=== PATIENT | female | born 1980 | race Caucasian/White ===

== ENCOUNTER 2017-12-22 12:44 | Emergency (ER) | payer MEDICAID ==
[2017-12-22 13:02] VITALS: RESP 18; BMI 24.6
--- NOTE | 2017-12-22 15:36 | ED PDOC ---
Arrival/HPI - General Chief Complaint: Back Pain Time Seen by Provider: 12/22/17 15:23 Historian: Patient - History of Present Illness Narrative History of Present Illness (Text): 12/22/17 15:31 37 yo female w/o significant PMHx come in for evaluation of Right sided lower back pain gradually developed for past 5 days. Pt admits, pain is localized over Right sided lower back with intermittent radiation to Right leg and associated with tingling sensation over Right thigh and foot. Pt admits, pain is started after lifted child. Otherwise, pt deneis known direct trauma or injury, fever, chills, abd. pain, N/V, UTI sx, saddle anesthesia, incontinence, denies weakness, sensory or vascular deficits to B/L LEs. Ambulate to Ed for evaluation, not in any apparent distress. Past Medical History - Provider Review Nursing Documentation Reviewed: Yes - Travel History Have you recently traveled outside [place] w/in the past 3 mons?: No - Past History Past History: No Previous - Infectious Disease Hx of Infectious Diseases: None - Tetanus Immunization Tetanus Immunization: Unknown - Psychiatric Hx Depression: No Hx Emotional Abuse: No Hx Physical Abuse: No Hx Substance Use: No - Past Surgical History Past Surgical History: No Previous - Suicidal Assessment Feels Threatened In Home Enviroment: No Family/Social History - Physician Review Nursing Documentation Reviewed: Yes Family/Social History: No Known Family HX Smoking Status: Never Smoked Hx Alcohol Use: No Hx Substance Use: No Allergies/Home Meds Allergies/Adverse Reactions: Allergies No Known Allergies Allergy (Verified 05/01/13 15:58) Home Medications: Home Meds Medication Instructions Recorded Confirmed Chlorzoxazone [Chlorzoxazone] 500 mg PO HS PRN 12/22/17 12/22/17 Review of Systems - Review of Systems Constitutional: Normal Eyes: Normal ENT: Normal Respiratory: Normal Cardiovascular: Normal Gastrointestinal: Normal Genitourinary Female: Normal Musculoskeletal: Back Pain Skin: Normal Neurological: Normal Endocrine: Normal Hemo/Lymphatic: Normal Psychiatric: Normal Physical Exam Vital Signs Reviewed: Yes Vital Signs Temp Pulse Resp BP Pulse Ox 12/22/17 17:16 97.9 F 76 18 99 12/22/17 16:01 79 18 118/71 100 12/22/17 13:02 98.0 F 86 18 121/78 100 Temperature: Afebrile Blood Pressure: Normal Pulse: Regular Respiratory Rate: Normal Appearance: Positive for: Well-Appearing, Non-Toxic, Comfortable Pain Distress: Moderate Mental Status: Positive for: Alert and Oriented X 3 - Systems Exam Head: Present: Normocephalic Conjunctiva: Present: Normal Mouth: No: Drooling Pharnyx: No: ERYTHEMA Neck: Present: Normal Range of Motion, Trachea Midline Respiratory/Chest: Present: Clear to Auscultation, Good Air Exchange. No: Respiratory Distress, Accessory Muscle Use Cardiovascular: Present: Regular Rate and Rhythm, Normal S1, S2. No: Murmurs Abdomen: No: Tenderness, Distention, Peritoneal Signs, Rebound, Guarding Back: Present: Paraspinal Tenderness (diffuse Right lumbar with moderate muscel spasm). No: CVA Tenderness, Midline Tenderness Upper Extremity: Present: Normal ROM, NORMAL PULSES. No: Deformity Lower Extremity: Present: NORMAL PULSES, Normal ROM. No: Edema, CALF TENDERNESS , Deformity Neurological: Present: GCS=15, Speech Normal, Motor Func Grossly Intact, Normal Sensory Function, Norm Deep Tendon Reflexes Skin: Present: Warm, Dry, Normal Color. No: Rashes Psychiatric: Present: Alert, Oriented x 3, Normal Insight, Normal Concentration Medical Decision Making ED Course and Treatment: 12/22/17 15:38 On re-evaluation, pt is afebrile, hemodynamicaly stable. Non-toxic. Ambulatory in Ed with stable gait. Neck: Supple. Lungs: CTA B/L, BS equal B/L Abd: benign, (-) guarding, (-) rebound back: (-) CVA tenderness. Neurologicaly intact. L-spine xray review and appears normal. UA results (+) RBC, WBC Pt has clinical findings c/w Right sided lumbar radiculopathy, UTI. Pt advised. ref. to f/u with PMD, Pain management in 2-3 days for re-evaluation and further treatment return to Ed if any worsening or new changes. - Lab Interpretations Lab Results: Lab Results 12/22/17 15:58: Urine Color Yellow, Urine Appearance Sl cloudy, Urine pH 6.0, Ur Specific Perkins 1.025, Urine Protein Negative, Urine Glucose (UA) Negative, Urine Ketones Negative, Urine Blood Small H, Urine Nitrate Negative, Urine Bilirubin Negative, Urine Urobilinogen 0.2, Ur Leukocyte Esterase Small H, Urine RBC 2 - 5, Urine WBC 5 - 10, Ur Epithelial Cells 10 - 12, Urine Bacteria Few - RAD Interpretation Radiology Orders: 12/22/17 15:28 LS SPINE AP/LAT [RAD] Stat (-) acute fx or sublux - Medication Orders Current Medication Orders: Discontinued Medications Gabapentin (Neurontin) 300 mg PO STAT JOE PRN Reason: Protocol Last Admin: 12/22/17 16:10 Dose: 300 mg Nitrofurantoin Macrocrystals (Macrobid) 100 mg PO STAT STA PRN Reason: Protocol Stop: 12/22/17 16:19 Last Admin: 12/22/17 17:11 Dose: 100 mg Prednisone (Prednisone Tab) 60 mg PO STAT STA Stop: 12/22/17 15:30 Last Admin: 12/22/17 16:10 Dose: 60 mg Tramadol HCl (Ultram) 50 mg PO STAT STA Stop: 12/22/17 15:32 Last Admin: 12/22/17 16:10 Dose: Not Given Non-Admin Reason: Patient Refused Disposition/Present on Arrival - Present on Arrival Any Indicators Present on Arrival: No History of DVT/PE: No History of Uncontrolled Diabetes: No Urinary Catheter: No History of Decub. Ulcer: No History Surgical Site Infection Following: None - Disposition Have Diagnosis and Disposition been Completed?: Yes Diagnosis: Lumbar radiculopathy Disposition: HOME/ ROUTINE Disposition Time: 16:14 Patient Plan: Discharge Condition: STABLE Discharge Instructions (ExitCare): Urinary Tract Infections in Adults, Radiculopathy Additional Instructions: Light duty to lower back, avoid heavy lifting, bending, etc. Take medication as prescribed Follow up with PMD in 2-3 days for re-evaluation. return to ED if any worsening or new changes. Prescriptions: Gabapentin 300 mg PO HS #10 capsule Methocarbamol [Robaxin] 500 mg PO TID #14 tab Nitrofurantoin Macrocrystals [Macrobid] 1 cap PO BID #14 cap Prednisone [Deltasone] 40 mg PO DAILY #8 tablet traMADol [Ultram] 50 mg PO TID #7 tab Referrals: at [facility] [place] [Outside] - Follow up with primary Forms: High[employer] (Georgian)
[2017-12-22 16:01] VITALS: BP 118/71
[2017-12-22 16:05] LABS: URINE BILIRUBIN NEGATIVE (NEGATIVE); URINE BLOOD SMALL (NEGATIVE); URINE GLUCOSE (UA) NEGATIVE (NEGATIVE); URINE LEUKOCYTE ESTERASE SMALL Leu/uL (NEGATIVE); URINE PROTEIN NEGATIVE mg/dL (<30 mg/dL); URINE UROBILINOGEN 0.2 E.U./dL (<1 E.U./dL)
[2017-12-22 16:08] LABS: URINE APPEARANCE SL CLOUDY (CLEAR); URINE COLOR YELLOW (YELLOW)
[2017-12-22 16:16] LABS: URINE BACTERIA FEW (NEG)
[2017-12-22 17:17] VITALS: PULSE 76; TEMP 97.9; O2SAT 99
--- NOTE | 2017-12-23 09:06 | RAD ---
PROCEDURE: Radiographs of the Lumbar Spine. HISTORY: pain COMPARISON: No prior. FINDINGS: BONES: Normal alignment. No listhesis. No fracture. DISC SPACES: Unremarkable. OTHER FINDINGS: None. IMPRESSION: Unremarkable radiographs of the lumbar spine.
== END 2017-12-22 17:29 | disposition home or self-care (01) ==
LOC: ED 12:44
DX: M54.16 Radiculopathy, lumbar region (principal)

== ENCOUNTER 2018-03-11 11:52 | Emergency (ER) | payer MEDICAID ==
[2018-03-11 11:53] VITALS: BMI 24.6
[2018-03-11 12:09] VITALS: RESP 18
--- NOTE | 2018-03-11 12:48 | ED PDOC ---
Arrival/HPI - General Chief Complaint: Back Pain Time Seen by Provider: 03/11/18 12:05 Historian: Patient - History of Present Illness Narrative History of Present Illness (Text): 03/11/18 12:45 38yo female with no past medical history who present to emergency department with complaint of sharp/crampy lower back pain that radiates to her left lower leg x 2days. states pain started when she bent down to spanish moss picker something from the floor. states pain is with ambulation/movement. She reports history of similar pain in the past. States she was seen here in December for the pain and LS xray was negative then. She denies saddle anesthesia, focal weakness, urinary symptoms, fever, chills, abdominal pain, hematuria, any other complaint. Past Medical History - Provider Review Nursing Documentation Reviewed: Yes - Past History Past History: No Previous - Infectious Disease Hx of Infectious Diseases: None - Tetanus Immunization Tetanus Immunization: Unknown - Reproductive Menopause: No - Psychiatric Hx Depression: No Hx Emotional Abuse: No Hx Physical Abuse: No Hx Substance Use: No - Past Surgical History Past Surgical History: No Previous - Suicidal Assessment Feels Threatened In Home Enviroment: No Family/Social History - Physician Review Nursing Documentation Reviewed: Yes Family/Social History: Unknown Family HX Smoking Status: Never Smoked Hx Alcohol Use: No Hx Substance Use: No Allergies/Home Meds Allergies/Adverse Reactions: Allergies No Known Allergies Allergy (Verified 05/01/13 15:58) Review of Systems - Physician Review All systems were reviewed & negative as marked: Yes - Review of Systems Constitutional: Normal Eyes: Normal ENT: Normal Respiratory: Normal Cardiovascular: Normal Gastrointestinal: Normal Genitourinary Female: Normal Musculoskeletal: Back Pain Skin: Normal Neurological: Normal Endocrine: Normal Hemo/Lymphatic: Normal Psychiatric: Normal Physical Exam Vital Signs Reviewed: Yes Vital Signs Temp Pulse Resp BP Pulse Ox 03/11/18 14:30 98.6 F 78 18 120/80 99 03/11/18 14:00 98.9 F 78 18 120/80 98 03/11/18 12:11 98.7 F 82 18 129/84 100 03/11/18 12:05 98.7 F 82 18 129/84 100 03/11/18 11:53 98.7 F 82 18 129/84 100 Temperature: Afebrile Blood Pressure: Normal Pulse: Regular Respiratory Rate: Normal Appearance: Positive for: Well-Appearing, Non-Toxic, Comfortable Pain Distress: None Mental Status: Positive for: Alert and Oriented X 3 - Systems Exam Head: Present: Atraumatic, Normocephalic Pupils: Present: PERRL Extroacular Muscles: Present: EOMI Conjunctiva: Present: Normal Mouth: Present: Moist Mucous Membranes Neck: Present: Normal Range of Motion Respiratory/Chest: Present: Clear to Auscultation, Good Air Exchange. No: Respiratory Distress, Accessory Muscle Use Cardiovascular: Present: Regular Rate and Rhythm, Normal S1, S2. No: Murmurs Abdomen: No: Tenderness, Distention, Peritoneal Signs Back: Present: Paraspinal Tenderness (Paralumbar tenderness). No: Midline Tenderness, Pain with Leg Raise (leg) Upper Extremity: Present: Normal Inspection. No: Cyanosis, Edema Lower Extremity: Present: Normal Inspection. No: Edema Neurological: Present: GCS=15, CN II-XII Intact, Speech Normal Skin: Present: Warm, Dry, Normal Color. No: Rashes Psychiatric: Present: Alert, Oriented x 3, Normal Insight, Normal Concentration Medical Decision Making ED Course and Treatment: 03/11/18 18:20 PT in emergency department for lower back pain. She reports previous history. she was ambulatory and neurologically intact She had LS xray the last time she was in emergency department . She denied any trauma . Imaging will not be done at this time. Her pain was controlled in emergency department with medication. She was ambulatory and neurologically intact. she was DC home with Ibuprofen, lidoderm and flexeril for MS pain. Advised to rest, apply warm compress/shower to area. Referred to her PMD. - Medication Orders Current Medication Orders: Discontinued Medications Cyclobenzaprine HCl (Flexeril) 10 mg PO STAT STA Stop: 03/11/18 12:27 Last Admin: 03/11/18 12:32 Dose: 10 mg Ibuprofen (Motrin Tab) 400 mg PO STAT STA Stop: 03/11/18 12:40 Last Admin: 03/11/18 12:51 Dose: 400 mg MAR Pain/Vitals Document 03/11/18 12:51 SRE (Rec: 03/11/18 12:52 SRE [id number]) Pain Reassessment Is This A Pain ReAssessment? Yes Sleep Is patient sleeping during reassessment? No Presence of Pain Presence of Pain Yes Pain Scale Used Pain Scale Used Numeric Location Pain Location Body Site Back Description Constant Intensity 7 Scale Used Numeric Ketorolac Tromethamine (Toradol) 60 mg IM STAT STA Stop: 03/11/18 12:26 Last Admin: 03/11/18 12:38 Dose: Prednisone (Prednisone Tab) 40 mg PO STAT STA Stop: 03/11/18 14:02 Last Admin: 03/11/18 14:08 Dose: 40 mg Disposition/Present on Arrival - Present on Arrival Any Indicators Present on Arrival: No History of DVT/PE: No History of Uncontrolled Diabetes: No Urinary Catheter: No History of Decub. Ulcer: No History Surgical Site Infection Following: None - Disposition Have Diagnosis and Disposition been Completed?: Yes Diagnosis: Back pain Disposition: HOME/ ROUTINE Disposition Time: 14:00 Patient Plan: Discharge Condition: STABLE Discharge Instructions (ExitCare): Low Back Pain in Adults Additional Instructions: Follow up with your doctor Return to emergency department for any new or worsening symptoms Prescriptions: Cyclobenzaprine [Cyclobenzaprine HCl] 10 mg PO TID #12 tab Ibuprofen [Motrin Tab] 600 mg PO Q6 #15 tab Lidocaine 5% [Lidoderm] 1 each TP BID #10 patch Referrals: Danna Shook MD [Medical Doctor] - Follow up with primary Forms: [employer] (Canadian)
[2018-03-11 14:30] VITALS: BP 120/80; PULSE 78
[2018-03-11 14:31] VITALS: TEMP 98.6; O2SAT 99
== END 2018-03-11 14:30 | disposition home or self-care (01) ==
LOC: ED 11:52
DX: M54.5 Low back pain (principal)

== ENCOUNTER 2018-05-17 08:21 | Emergency (ER) | payer MEDICAID ==
[2018-05-17 08:23] VITALS: BMI 24.6
[2018-05-17] MEDS ORDERED: Sodium Chloride 0.9% 1,000 ML IV STA (08:51)
--- NOTE | 2018-05-17 08:55 | ED PDOC ---
Arrival/HPI - General Chief Complaint: Abdominal Pain Historian: Patient - History of Present Illness Narrative History of Present Illness (Text): 05/17/18 08:51 38 year old female, with no significant past medical history, presents to the Emergency department complaining of left sided suprapubic abdominal pain since yesterday. Patient informs associated 1 episode of vomiting this morning. Patient states improvement of symptoms after vomiting but requests medical evaluation of her symptoms. Patient denies any recent changes to diet or medications. Patient states her LNMP was last month without any complications. Patient denies any other associated somatic complaints. Patient denies any fevers, chills, headache, dizziness, chest pain, shortness of breath, diarrhea, dysuria, hematuria, urinary frequency, hematochezia, vaginal bleeding/discharge, back pain, neck pain, or any other complaints. PMD: [facility] Time/Duration: 24 hours Symptom Onset: Gradual Symptom Course: Unchanged Quality: Aching Activities at Onset: Light Context: Home Past Medical History - Provider Review Nursing Documentation Reviewed: Yes - Past History Past History: No Previous - Infectious Disease Hx of Infectious Diseases: None - Tetanus Immunization Tetanus Immunization: Unknown - Psychiatric Hx Depression: No Hx Emotional Abuse: No Hx Physical Abuse: No Hx Substance Use: No - Past Surgical History Past Surgical History: No Previous - Suicidal Assessment Feels Threatened In Home Enviroment: No Family/Social History - Physician Review Nursing Documentation Reviewed: Yes Family/Social History: Unknown Family HX Smoking Status: Never Smoked Hx Alcohol Use: No Hx Substance Use: No Allergies/Home Meds Allergies/Adverse Reactions: Allergies No Known Allergies Allergy (Verified 05/01/13 15:58) Home Medications: Home Meds Medication Instructions Recorded Confirmed Multivitamin [Multivitamins] 1 tab PO DAILY 05/17/18 05/17/18 Review of Systems - Physician Review All systems were reviewed & negative as marked: Yes - Review of Systems Constitutional: absent: Fevers Respiratory: absent: SOB, Cough Cardiovascular: absent: Chest Pain, LIEBERMAN Gastrointestinal: Abdominal Pain, Nausea, Vomiting. absent: Stool Changes, Diarrhea, Hematochezia, Hematemesis Genitourinary Female: absent: Dysuria, Frequency, Hematuria, Vaginal Bleeding, Vaginal Discharge Musculoskeletal: absent: Back Pain, Neck Pain Neurological: absent: Headache, Dizziness Physical Exam Vital Signs Reviewed: Yes Vital Signs Temp Pulse Resp BP Pulse Ox 05/17/18 08:32 97.5 F L 69 18 117/75 100 Temperature: Afebrile Blood Pressure: Normal Pulse: Regular Respiratory Rate: Normal Appearance: Positive for: Well-Appearing, Non-Toxic, Comfortable Pain Distress: None Mental Status: Positive for: Alert and Oriented X 3 - Systems Exam Head: Present: Atraumatic, Normocephalic Pupils: Present: PERRL Extroacular Muscles: Present: EOMI Conjunctiva: Present: Normal Neck: Present: Normal Range of Motion Respiratory/Chest: Present: Clear to Auscultation, Good Air Exchange. No: Respiratory Distress, Accessory Muscle Use Cardiovascular: Present: Regular Rate and Rhythm, Normal S1, S2. No: Murmurs Abdomen: Present: Tenderness (mild tenderness to left lower quadrant). No: Distention, Peritoneal Signs Back: Present: Normal Inspection Upper Extremity: Present: Normal Inspection. No: Cyanosis, Edema Lower Extremity: Present: Normal Inspection. No: Edema Neurological: Present: GCS=15, CN II-XII Intact, Speech Normal Skin: Present: Warm, Dry, Normal Color. No: Rashes Psychiatric: Present: Alert, Oriented x 3, Normal Insight, Normal Concentration Medical Decision Making ED Course and Treatment: 05/17/18 08:51 Impression: 38 year old female presents to the Emergency department complaining of left lower abdominal pain. Plan: -- CT od Abdomen/Pelvis -- Labs -- Pepcid -- IV Fluids -- zofran -- Urine Culture -- Urinalysis -- Reassess and disposition Prior Visits: Notes and results from previous visits were reviewed. Progress Notes: - Scribe Statement The provider has reviewed the documentation as recorded by the Deseanibhan Uriostegui. All medical record entries made by the Scribe were at my direction and personally dictated by me. I have reviewed the chart and agree that the record accurately reflects my personal performance of the history, physical exam, medical decision making, and the department course for this patient. I have also personally directed, reviewed, and agree with the discharge instructions and disposition. Disposition/Present on Arrival - Present on Arrival Any Indicators Present on Arrival: No History of DVT/PE: No History of Uncontrolled Diabetes: No Urinary Catheter: No History of Decub. Ulcer: No History Surgical Site Infection Following: None - Disposition Have Diagnosis and Disposition been Completed?: Yes Diagnosis: Abdominal pain Disposition: HOME/ ROUTINE Disposition Time: 12:00 Condition: GOOD Discharge Instructions (ExitCare): Acute Abdomen (Belly Pain), Adult (DC) Additional Instructions: BART VILLALTA, thank you for letting us take care of you today. Your provider was Darwin Chaudhari DO and you were treated for abdominal pain. The emergency medical care you received today was directed at your acute symptoms. If you were prescribed any medication, please fill it and take as directed. It may take several days for your symptoms to resolve. Return to the Emergency Department if your symptoms worsen, do not improve, or if you have any other problems. Please contact your doctor or call one of the physicians/clinics you have been referred to that are listed on the Patient Visit Information form that is included in your discharge packet. Bring any paperwork you were given at discharge with you along with any medications you are taking to your follow up visit. Our treatment cannot replace ongoing medical care by a primary care provider outside of the emergency department. Thank you for allowing the [facility] team to be part of your care today. Follow up with your primary care doctor in 2-3 days for re-evaluation and further management. Prescriptions: Ibuprofen [Motrin] 600 mg PO Q6 PRN #20 tab PRN Reason: Pain, Moderate (4-7) Referrals: Srini Gould MD [Primary Care Provider] - Follow up with primary Forms: [employer] (Turkish)
[2018-05-17 10:33] LABS: BASO # 0.01 K/mm3 (0.0-2.0); BASO % 0.2 % (0.0-3.0); EOS # 0.1 (0.0-0.7); EOS % 1.4 % (1.5-5.0); GRAN # 4.82 (1.4-6.5); GRAN % 74.3 % (50.0-68.0); HEMOGLOBIN 13.3 g/dL (12.0-16.0); LYMPH # 1.3 (1.2-3.4); LYMPH % 19.8 % (22.0-35.0); MEAN CELL VOLUME 78.9 fl (80.0-105.0); MEAN CORPUSCULAR HEMOGLOBIN 25.1 pg (25.0-35.0); MEAN CORPUSCULAR HGB CONC 31.8 g/dl (31.0-37.0); MEAN PLATELET VOLUME 10.3 fl (7.0-11.0); MONO # 0.3 (0.1-0.6); MONO % 4.3 % (1.0-6.0); RBC 5.3 10^6/uL (3.5-6.1); RED CELL DISTRIBUTION WIDTH 13.1 % (11.5-14.5); WHITE BLOOD COUNT 6.5 10^3/uL (4.5-11.0)
[2018-05-17 10:40] LABS: ALB/GLOB RATIO 1.1 (1.1-1.8); ALBUMIN 4.4 g/dL (3.0-4.8); BLOOD UREA NITROGEN 19 mg/dL (7-21); CALCIUM 9.8 mg/dL (8.4-10.5); GFR NON-AFRICAN AMERICAN > 60; LIPASE 81 U/L (23-300)
[2018-05-17 10:41] LABS: ALT/SGPT 29 U/L (7-56); AST/SGOT 27 U/L (14-36)
[2018-05-17] MEDS ORDERED: Iohexol 350 MG/100 ML VIAL ONE (10:54)
[2018-05-17 11:05] LABS: PH,URINE 5.5 (4.7-8.0); URINE BILIRUBIN NEGATIVE (NEGATIVE); URINE BLOOD SMALL (NEGATIVE); URINE GLUCOSE (UA) NEGATIVE (NEGATIVE); URINE LEUKOCYTE ESTERASE SMALL Leu/uL (NEGATIVE); URINE PROTEIN NEGATIVE mg/dL (<30 mg/dL); URINE UROBILINOGEN 0.2 E.U./dL (<1 E.U./dL)
[2018-05-17 11:09] VITALS: RESP 16; TEMP 98.2; O2SAT 99
[2018-05-17 11:13] LABS: URINE APPEARANCE CLEAR (CLEAR); URINE COLOR YELLOW (YELLOW)
[2018-05-17 11:16] LABS: HCG,QUALITATIVE URINE NEGATIVE (NEGATIVE)
[2018-05-17 11:27] LABS: URINE AMORPHOUS SEDIMENT FEW; URINE BACTERIA MANY (NEG)
--- NOTE | 2018-05-17 12:31 | CT ---
Date of service: 05/17/2018 PROCEDURE: CT Abdomen and Pelvis with contrast HISTORY: LLQ tenderness COMPARISON: 05/01/2013 TECHNIQUE: Contrast dose: 100 cc of Omni 350 Radiation dose: Total exam DLP = 471.58 mGy-cm. This CT exam was performed using one or more of the following dose reduction techniques: Automated exposure control, adjustment of the mA and/or kV according to patient size, and/or use of iterative reconstruction technique. FINDINGS: LOWER THORAX: Unremarkable. LIVER: Unremarkable. No gross lesion or ductal dilatation. GALLBLADDER AND BILE DUCTS: Unremarkable. PANCREAS: Unremarkable. No gross lesion or ductal dilatation. SPLEEN: Unremarkable. ADRENALS: Unremarkable. No mass. KIDNEYS AND URETERS: Unremarkable. No hydronephrosis. No solid mass. VASCULATURE: Unremarkable. No aortic aneurysm. No aortic atherosclerotic calcification or mural plaque present. BOWEL: Unremarkable. No obstruction. No gross mural thickening. APPENDIX: Normal appendix. PERITONEUM: Unremarkable. No free fluid. No free air. LYMPH NODES: Unremarkable. No enlarged lymph nodes. BLADDER: Unremarkable. REPRODUCTIVE: There is a large fatty density dermoid in the midline of the pelvis above the bladder. This measures 86 mm in height 81 mm wide and 66 mm AP. Septations and calcifications are also seen. The lesion has slightly increased in size. There is a thick-walled collapsed cyst in the right ovary. There is no fluid in the cul-de-sac. BONES: No acute fracture. OTHER FINDINGS: None. IMPRESSION: There is a large fatty density dermoid in the midline of the pelvis above the bladder. This measures 86 mm in height 81 mm wide and 66 mm AP. Septations and calcifications are also seen. The lesion has slightly increased in size. There is a thick-walled collapsed cyst in the right ovary consistent with recent cyst rupture. There is no fluid in the cul-de-sac.
[2018-05-17 13:02] VITALS: BP 115/76; PULSE 67
== END 2018-05-17 13:01 | disposition home or self-care (01) ==
LOC: ED 08:21
DX: R10.9 Unspecified abdominal pain (principal)
CPT/HCPCS: 74177; 80053; 81001; 83690; 83735; 84703; 85025; 87086; 96374; 96375; 99284; J2405; J7030; Q9967